=== PATIENT | female | born 1950 | race Two or more races ===

== ENCOUNTER → 2024-03-02 | Outpatient (CLI) | payer MEDICARE, MEDICAID, SELFPAY ==
--- NOTE | 2024-03-02 | XR_ITS ---
Examination: Wrist, right 3 views Technique: Wrist AP, oblique, lateral 3 views Date and time of exam: March 02, 2024 1137 hours INDICATIONS: Right wrist fracture 2 months ago FINDINGS: Significant healing fracture distal radial metaphysis with stable and satisfactory alignment compared with 01/05/2024 IMPRESSION: Significant healing fracture radial metaphysis with satisfactory alignment
[2024-03-02 13:04] LABS: Anion Gap 5 (7-16); BUN/Creatinine Ratio 27 Ratio (12-20); Blood Urea Nitrogen 16 mg/dL (9-23); Calcium 10.3 mg/dL (8.3-10.6); Carbon Dioxide 28.7 mMol/L (20.0-31.0); Chloride 102 mMol/L (98-107); Creatinine (Component) 0.6 mg/dL (0.6-1.3); Glucose 94 mg/dL (74-106); Osmolality,Calculated 273 (275-295); Potassium 4.8 mMol/L (3.4-5.1); Sodium 136 mMol/L (136-145); eGFR > 60 See Note
== END | disposition home or self-care (01) ==
LOC: CDIM 11:10 → COPL 11:47
PROVIDERS: Otolaryngology; PCP Family Medicine; Referring Provider Orthopaedic Surgery; Visit Provider Radiology Diagnostic Radiology
DX: S52.591D Other fractures of lower end of right radius, subsequent encounter for closed fracture with routine healing (principal); X58.XXXD Exposure to other specified factors, subsequent encounter; H91.22 Sudden idiopathic hearing loss, left ear
CPT/HCPCS: 36415; 73110; 80048

== ENCOUNTER → 2024-05-20 | Outpatient (CLI) | payer MEDICARE, MEDICAID, SELFPAY ==
[2024-05-20 10:47] LABS: Anion Gap 9 (7-16); BUN/Creatinine Ratio 28 Ratio (12-20); Blood Urea Nitrogen 17 mg/dL (9-23); Calcium 9.7 mg/dL (8.3-10.6); Carbon Dioxide 30.7 mMol/L (20.0-31.0); Chloride 99 mMol/L (98-107); Creatinine (Component) 0.6 mg/dL (0.6-1.3); Glucose 117 mg/dL (74-106); Osmolality,Calculated 280 (275-295); Sodium 139 mMol/L (136-145); eGFR > 60 See Note
== END | disposition home or self-care (01) ==
LOC: COPL 09:25
PROVIDERS: PCP Physician Assistant; Referring Provider Otolaryngology; Visit Provider Otolaryngology
DX: H91.22 Sudden idiopathic hearing loss, left ear (principal)
CPT/HCPCS: 36415; 80048

== ENCOUNTER → 2024-05-22 | Outpatient (CLI) | payer MEDICARE, MEDICAID, SELFPAY ==
--- NOTE | 2024-05-22 | XR_ITS ---
Examination: MRI of brain without intravenous contrast. MRI brain with intravenous contrast. Date and time of exam:May 22, 2024 1314 hrs. Indications: Sensorineural hearing loss bilateral 6 months Technique: Multiple axial and sagittal images of the brain to been obtained. Siemens high-resolution 1.52 Katie short bore scanner utilized. Sagittal sections, T1 weighted images, TR 500, TE 14, are performed. Axial sections proton-density and T2-weighted images have been obtained. Inversion recovery axial images, TR 9260, TE 111, TR 2500. Diffusion weighted images, axial sections, TR 4800, TE 128, B value 1000. Axial sections, ADC map, TR 4800, TE 128. Axial and coronal images were also obtained post 16 cc gadolinium administered intravenously. Findings:: Enlargement of the sella turcica is not present. The optic chiasm and infundibular stalk are not remarkable. There is no localized enlargement of the medulla or serena. Fourth ventricle and cerebellar tonsils appear normal in position. No subacute area of hemorrhage density is seen. Fourth ventricle is midline. Mass in the cerebellopontine angle region is not evident. 7th and 8th nerve complexes exhibit symmetry Globes are symmetrical Orbital musculature including medial lateral rectus muscles do not exhibit abnormality Increased white matter signal is prominent Mild bilateral mastoiditis Effacement of the cortical sulcal markings is not identified. Mass effect upon the ventricular system is not identified. Diffusion-weighted images demonstrate no focus of restricted diffusion Contrast images demonstrate no abnormal enhancement Impression: Negative for acute hemorrhage mass effect or midline shift No acute infarct Prominent chronic microvascular white matter change Mild bilateral mastoiditis No abnormal enhancing acoustic neurinoma or other enhancing cerebellar or cerebral lesions
== END | disposition home or self-care (01) ==
LOC: SMRI 11:12
PROVIDERS: PCP Physician Assistant; Referring Provider Otolaryngology; Visit Provider Otolaryngology
DX: R90.82 White matter disease, unspecified (principal); H70.93 Unspecified mastoiditis, bilateral
CPT/HCPCS: 70553; A9579

== ENCOUNTER → 2024-09-17 | Outpatient (CLI) | payer MEDICARE, MEDICAID, SELFPAY ==
--- NOTE | 2024-09-17 08:00 | XR_ITS ---
Examination: Screening digital mammography, bilateral Computer aided detection 3-D breast Tomosynthesis, bilateral Date and time of exam: September 17, 2024 0759 hours Compared to mammograms dating to September 22, 2008 Indication: Screening Technique: Nonmagnified MLO, CC views of the breasts to been obtained, reconstructed from 3-D Tomosynthesis images. R2 computer aided detection program utilized for evaluation of suspicious masses and/or abnormal calcifications. 3-D Tomosynthesis images obtained. Findings: Scattered areas of fibroglandular density. Benign calcifications. No interval suspicious masses Impression: BI-RADS category II: Benign Findings. Recommend 1 year follow-up mammogram.
== END | disposition home or self-care (01) ==
LOC: CDIM 07:07
PROVIDERS: PCP Physician Assistant; Referring Provider Physician Assistant; Visit Provider Physician Assistant
DX: Z12.31 Encounter for screening mammogram for malignant neoplasm of breast (principal); R92.323 Mammographic fibroglandular density, bilateral breasts; R92.1 Mammographic calcification found on diagnostic imaging of breast
CPT/HCPCS: 77063; 77067

== ENCOUNTER 2024-09-25 14:22 | Emergency (ER) | payer MEDICARE, MEDICAID, SELFPAY ==
[2024-09-25 15:31] VITALS: BP 126/66; PULSE 77; RESP 18; TEMP 36.8; O2SAT 97; BMI 34.0
--- NOTE | 2024-09-25 15:48 | XR_ITS ---
Examination: Knee bilateral, 6 views Technique: Knee AP, lateral, oblique using a total 6 views Date and time of exam: September 25, 2024 1555 hours INDICATIONS: Bilateral knee pain 6 weeks. FINDINGS: Bilateral moderate to advanced tricompartment osteoarthritis, most severe involving the patellofemoral joints as well as the medial joints right knee and lateral joint space left knee No fractures IMPRESSION: Bilateral moderate to advanced tricompartment osteoarthritis
--- NOTE | 2024-09-25 16:11 | PD.EDLOWEX ---
Lower Extremity Injury RME/HPI General Chief Complaint: Extremity Injury, Lower Stated Complaint: bilateral leg pain Time Seen by Provider: 09/25/24 14:53 Arrival date/time: 09/25/24 14:22 This is a 74-year-old that complains of bilateral leg pain and lower back pain. Patient states is been going on for really long time. Patient states she did not fall she had no trauma. Patient does complain of bilateral knee pain which recently got worse. Patient states she is gone to her primary doctor and they are never able to do anything for her pain. Patient states she takes ibuprofen. Patient denies any urinary symptoms but does have some lower abdominal mild pain. Patient has a history of diabetes and chronic pain. Related Data Previous Rx's ?Medication ?Instructions ?Recorded meclizine 25 mg tablet 25 mg PO QDAY PRN dizziness #30 05/25/19 tabs omeprazole 20 mg tablet,delayed 20 mg PO QDAY #30 tabs 08/19/21 release ibuprofen 600 mg tablet 600 mg PO Q6H #30 tabs 03/06/23 meloxicam 7.5 mg tablet 7.5 mg PO QDAY #10 tabs 01/05/24 ibuprofen 800 mg tablet 800 mg PO Q6H PRN pain #20 tabs 09/25/24 Allergies Allergy/AdvReac Type Severity Reaction Status Date / Time No Known Allergies Allergy Verified 09/25/24 14:27 Course Orders Category Date Time Status XR knee BI 3V Stat Exams 09/25/24 15:48 Completed Urinalysis, C/S if Indicated Stat Lab 09/25/24 16:20 Completed Acetaminophen Tab [Tylenol ES Tab] Med 09/25/24 15:48 Discontinued 1,000 mg PO X1 ONE CYCLObenzaPRINE [Flexeril] Med 09/25/24 15:48 Discontinued 5 mg PO X1 ONE Furosemide [Lasix] Med 09/25/24 18:16 Once 20 mg PO X1 ONE Ibuprofen Tab [Motrin Tab] Med 09/25/24 15:48 Discontinued 800 mg PO X1 ONE Ondansetron Odt [Zofran Odt] Med 09/25/24 18:16 Once 4 mg PO X1 ONE traMADol HCL [Ultram] Med 09/25/24 18:16 Once 50 mg PO X1 ONE Vital Signs Vital signs: Vital Signs Temperature 98.3 F 09/25/24 15:31 Pulse Rate 77 05/31/25 15:31 Respiratory Rate 18 09/25/24 15:31 Blood Pressure 126/66 09/25/24 15:31 Pulse Oximetry (%) 97 09/25/24 15:31 Extremity Injury, Lower Medications / Prescriptions Medication administrations:: Medication Administration History Furosemide (Furosemide 20 Mg Tablet) 20 mg PO X1 ONE Stop: 09/25/24 18:17 Tramadol HCl (Tramadol Hcl 50 Mg Tablet) 50 mg PO X1 ONE Stop: 09/25/24 18:17 Discontinued Medications Acetaminophen (Acetaminophen 500 Mg Tablet) 1,000 mg PO X1 ONE Stop: 09/25/24 15:49 Last Admin: 09/25/24 16:36 Dose: 1,000 mg Documented By: Cyclobenzaprine HCl (Cyclobenzaprine 5 Mg Tablet) 5 mg PO X1 ONE Stop: 09/25/24 15:49 Last Admin: 09/25/24 16:36 Dose: 5 mg Documented By: Ibuprofen (Ibuprofen Tab 400 Mg Tablet) 800 mg PO X1 ONE Stop: 09/25/24 15:49 Last Admin: 09/25/24 16:37 Dose: 800 mg Documented By: Discharge Plan Plan Patient Disposition: HOME (Self Care) Patient condition on transfer: Stable Prescriptions/Referrals Prescriptions/Med Rec: New ibuprofen 800 mg tablet 800 mg PO Q6H PRN (Reason: pain) Qty: 20 0RF No Action meclizine 25 mg tablet 25 mg PO QDAY PRN (Reason: dizziness) Qty: 30 0RF omeprazole 20 mg tablet,delayed release (DR/EC) 20 mg PO QDAY Qty: 30 0RF ibuprofen 600 mg tablet 600 mg PO Q6H Qty: 30 0RF meloxicam 7.5 mg tablet 7.5 mg PO QDAY Qty: 10 0RF Problem List Clinical Impression: Osteoarthritis of both knees, Chronic leg pain Patient/Caregiver Discharge Instructions Discharge Activity: activity as tolerated Education Materials: KAM THOMPSON Osteoarthritis Additional Instructions: bilateral knee x ray: FINDINGS: Bilateral moderate to advanced tricompartment osteoarthritis, most severe involving the patellofemoral joints as well as the medial joints right knee and lateral joint space left knee No fractures IMPRESSION: Bilateral moderate to advanced tricompartment osteoarthritis Oleg un dustin con iraheta medico de cabecera en las proximas 24-48 horas. Regrese a la omid de emergencias si hay evidencia de que los signos o sintomas empeoran. Print Language: Bengali Stand Alone Forms: Laura Award Info., Patient Portal Info Letter PA/WARP STARTER Supervising Physician PA/WARP STARTER Supervising Physician: ward
[2024-09-25 16:28] LABS: Collection Type, Urine Voided
[2024-09-25] MEDS: ACETAMINOPHEN 500 MG TABLET 1000 MG PO (16:36)
[2024-09-25] MEDS: CYCLObenzaPRINE 5 MG TABLET PO (16:36)
[2024-09-25] MEDS: IBUPROFEN TAB 400 MG TABLET 800 MG PO (16:37)
[2024-09-25 16:41] LABS: Bilirubin,Urine 1+ (Negative); Blood,Urine Negative (Negative); Clarity,Urine Clear (Clear/Hazy); Color,Urine Yellow (Lt Yel-Yel); Culture Indicated,Urine Not Indicated; Glucose, Urine Negative (Negative); Hyaline Casts,Urine < 1 /hpf (0-1); Ketones,Urine Trace (Negative); Leukocyte Esterase,Urine Negative (Negative); Nitrite,Urine Negative (Negative); PH,Urine 5.5 (5.0-7.0); Protein,Urine Trace (Neg - Trace); RBC,Urine 3 /hpf (0-3); Squamous Epithelial Cell,Urine 6 /hpf (0-5); WBC,Urine 1 /hpf (0-5)
[2024-09-25] MEDS: ONDANSETRON ODT 4 MG TABRAP PO (18:29)
[2024-09-25] MEDS: traMADol HCL 50 MG TABLET PO (18:29)
[2024-09-25 19:34] VITALS: BP 126/66; PULSE 77
[2024-09-25] MEDS: Furosemide 20 MG TABLET PO (19:34)
== END 2024-09-25 17:44 | disposition home or self-care (01) ==
LOC: SERX 18:13
PROVIDERS: Nurse Practitioner Family; Emergency Provider Emergency Medicine; PCP Physician Assistant
DX: M17.0 Bilateral primary osteoarthritis of knee (principal); E11.9 Type 2 diabetes mellitus without complications
CPT/HCPCS: 73562; 81001; 99283; Q0162; A9270

== ENCOUNTER → 2024-11-27 | Outpatient (CLI) | payer MEDICARE, MEDICAID, SELFPAY ==
--- NOTE | 2024-11-27 | XR_ITS ---
Exam: MRI knee without contrast, right Date and time of exam: November 27, 2024, 1043 hours Technique: Multiple axial, coronal, and sagittal sections on the knee have been obtained. T2-Weighted sagittal, fat-suppressed images, TR 3,500, TE 62, T2 weighted coronal fat-saturated images, TR 3,500, TE 62 Proton density sagittal sections, TR 1800, TE 31. T-1 weighted coronal images, TR 524, TE 13.0 Findings: Medial meniscus anterior horn truncation inner margin. Medial meniscus, body extruded from the joint space and replaced by isointense signal. Posterior horn medial meniscus truncation inner margin, horizontal linear tears. Lateral meniscus anterior horn truncation inner margin Lateral meniscus, body is intact Posterior horn lateral meniscus is intact Anterior cruciate ligament high-grade sprain Posterior cruciate ligament appears intact. Knee effusion is small. Quadriceps and patellar tendons appear intact. There is no evidence of tendinosis. Inflammatory change or fracture of Hoffa's fat pad is not seen. Medial patellar facet demonstrates severe thinning. Lateral patellar facet cartilage demonstrates severe thinning. Trochlear cartilage demonstrates severe thinning. Marrow signal adequate. Medial collateral ligament appears intact. No meniscocapsular separation is seen. Illiotibial band and fibular collateral ligament are intact. Biceps femoris tendons appear intact. Medial femoral condylar articular cartilage demonstrates severe thinning. Lateral femoral condylar articular cartilage demonstratesmoderate thinning. Tibial plateau cartilage demonstrates severe medial thinning. Impression: Extensive medial and lateral meniscus tears High-grade sprain anterior cruciate ligament
--- NOTE | 2024-11-27 10:30 | XR_ITS ---
Exam: MRI knee without contrast, right Date and time of exam: November 27, 2024 1016 hours INDICATIONS: Knee pain joint grinding stiffness swelling instability months Technique: Multiple axial, coronal, and sagittal sections on the knee have been obtained. T2-Weighted sagittal, fat-suppressed images, TR 3,500, TE 62, T2 weighted coronal fat-saturated images, TR 3,500, TE 62 Proton density sagittal sections, TR 1800, TE 31. T-1 weighted coronal images, TR 524, TE 13.0 Findings: Medial meniscus anterior horn intact. Medial meniscus, body horizontal linear tear communicating inner margin. Posterior horn medial meniscus truncation inner margin, horizontal linear tear. Lateral meniscus anterior horn truncation inner margin Lateral meniscus, body is partially replaced by isointense signal Posterior horn lateral meniscus large horizontal linear tear Anterior cruciate ligament high-grade sprain Posterior cruciate ligament appears intact. Knee effusion is moderate. Quadriceps and patellar tendons appear intact. There is no evidence of tendinosis. Inflammatory change or fracture of Hoffa's fat pad is not seen. Medial patellar facet demonstrates severe thinning. Lateral patellar facet cartilage demonstrates severe thinning. Trochlear cartilage demonstrates severe thinning. Marrow signal increased about the lateral joint space. Medial collateral ligament appears intact. No meniscocapsular separation is seen. Illiotibial band and fibular collateral ligament are intact. Biceps femoris tendons appear intact. Medial femoral condylar articular cartilage demonstrates moderate thinning. Lateral femoral condylar articular cartilage demonstratessevere thinning. Tibial plateau cartilage demonstrates severe lateral thinning. Impression: Extensive medial and lateral meniscus tears High-grade sprain anterior cruciate ligament Severe narrowing patellofemoral and lateral joint spaces
== END | disposition home or self-care (01) ==
LOC: SMRI 08:44
PROVIDERS: PCP Physician Assistant; Referring Provider Physician Assistant; Visit Provider Physician Assistant
DX: S83.282A Other tear of lateral meniscus, current injury, left knee, initial encounter (principal); S83.212A Bucket-handle tear of medial meniscus, current injury, left knee, initial encounter; S83.211A Bucket-handle tear of medial meniscus, current injury, right knee, initial encounter; S83.281A Other tear of lateral meniscus, current injury, right knee, initial encounter; S83.512A Sprain of anterior cruciate ligament of left knee, initial encounter; S83.511A Sprain of anterior cruciate ligament of right knee, initial encounter; X58.XXXA Exposure to other specified factors, initial encounter; Y93.9 Activity, unspecified; M25.862 Other specified joint disorders, left knee
CPT/HCPCS: 73718

== ENCOUNTER 2025-03-15 08:57 | Outpatient (AMB) | payer MEDICARE, MEDICAID, SELFPAY ==
[2025-03-15 09:25] VITALS: BP 129/80; PULSE 77; RESP 18; TEMP 36.7; O2SAT 97; BMI 31.6
--- NOTE | 2025-03-15 09:25 | PD.ORTHCLVIS ---
Vital signs 03/15/25 09:25 Height 1.55 m Height Method Measured Weight 75.835 kg Weight Measurement Method Standing Scale BMI 31.6 BP 129/80 Blood Pressure Source Automatic Cuff Blood Pressure Location Left Upper Arm Position Sitting Respiration 18 Pulse 77 Pulse Source Monitor Temp 98.1 F Temp Source Temporal Artery Scan Pulse Oximetry (%) 97 Oxygen Delivery Method Room Air Med/Allergies Allergies & Medications Allergies No Known Allergies Allergy (Verified 03/15/25 09:26) Medication Reconciliation ibuprofen 800 mg tablet 800 mg PO Q6H PRN pain #20 tabs 09/25/24 [Rx] calcium carbonate (Oyster Shell Calcium) 500 mg PO BID 03/15/25 [History Confirmed 03/15/25] ergocalciferol (vitamin D2) 50 mcg (2,000 unit) capsule 50 mcg PO QDAY 03/15/25 [History Confirmed 03/15/25] furosemide 20 mg tablet (Lasix) 20 mg PO QAM 03/15/25 [History Confirmed 03/15/25] oxybutynin chloride 5 mg/5 mL oral syrup 5 mg PO QDAY 03/15/25 [History Confirmed 03/15/25] zinc acetate 50 mg (zinc) capsule 50 mg PO QDAY 03/15/25 [History Confirmed 03/15/25] Exam Exam Patient is in no acute distress and is cooperative with the examination today. Breathing is nonlabored. In no respiratory distress. Bilateral extremities were evaluated and demonstrates sensation intact to light touch. Palpable pedal pulses are present. No significant edema is present. Bilateral hips were examined. The patient has no pain with log roll of the hips. Internal rotation to 30 degrees and external rotation to 30 degrees is painless. Negative FADIR. The left knee was examined. The left knee is in valgus alignment. Range of motion from 0-115 degrees. Knee is stable to varus and valgus as well as AP translation with <5mm. Patient has a negative McMurrays. There is no pain with patellofemoral compression and no crepitus noted. The knee is tender to palpation laterally. The right knee was also examined. The right knee is in valgus alignment. Range of motion from 0-120 degrees. Knee is stable to varus and valgus as well as AP translation with <5mm. Patient has a negative McMurrays. There is no pain with patellofemoral compression and no crepitus noted. The knee is tender to palpation laterally. Nonweightbearing x-rays demonstrate complete joint space narrowing and [id number] arthritis Assessment and Plan Problem List (1) Osteoarthritis of both knees: Status: Chronic Plan: ASSESSMENT AND PLAN 1. Bilateral knee pain: Significant arthritis is present in both knees, with the left knee being worse than the right. Conservative treatments, including plasma injections and ibuprofen, have provided limited relief. Pain is exacerbated by walking and relieved by sitting. Numbness and tingling are noted on the right side, while burning, aching, and popping are present on the left. Stiffness and night pain are also reported. A weightbearing x-ray will be conducted today to better assess the extent of the arthritis. Medical clearance will be obtained in preparation for potential surgical intervention. Depending on the x-ray results, further discussion regarding surgery will be held at the next visit. Risks and benefits of surgery, including potential improvement in pain and quality of life, will be thoroughly discussed. Lifestyle modifications, such as weight management and physical therapy, will be recommended to support joint health. Referral to an orthopedic surgeon will be made if surgery is deemed necessary. Ibuprofen will continue to be used for pain management as needed. Follow-up: Next visit after x-ray results. 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 ([id number]) MA Intake Visit Data Collection New Patient or Established: Established Patient (seen at [facility] within 3 years) Reason for Visit:: BILATERAL KNEE PAIN Seen by Clinical Staff ONLY (RN/MA): No Dry Kiln Loader Required: Yes PCP or OBGYN visit in last 3 months: Yes Hx Now: No Do You Feel Safe at Home: Yes Authorities Contacted: N/A Questionairres Past Medical History Past Medical History Have you ever been diagnosed with any of the following: Neurological Problems Cerebrovascular Accident (CVA): No Transient Ischemic Attacks (TIA): No Dementia: No Alzheimer's Disease: No Parkinson's Disease: No Brain Tumor: No Meningitis: No Seizures: No Epilepsy: No Multiple Sclerosis: No Cerebral Palsy: No Amyotrophic Lateral Sclerosis (ALS/Amy Gehrig's): No Guillain-[place] Syndrome: No Spina Bifida: No Paralysis: No Peripheral Neuropathy: No Riddle's Palsy: No Subdural Hematoma: No Migraine: No Head Trauma: No Spinal Cord Injury: No Cardiology Problems Myocardial Infarction: No Cardiac Arrhythmia: No Atrial Fibrillation: No Angina: No Heart Murmur: No Coronary Artery Disease: No Atherosclerotic Heart Disease: No Peripheral Vascular Disease: No Hypercholesterolemia: No Aneurysm: No Congestive Heart Failure: No Congenital Heart Disease: No Valvular Heart Disease: No Rheumatic Fever: No Edema: No Pericarditis: No Cellulitis: No Deep Vein Thrombosis: No Respiratory Problems Chronic Obstructive Pulmonary Disease (COPD): No Asthma: No Bronchitis: No Emphysema: No Pneumonia: No Pulmonary Fibrosis: No Tuberculosis: No Pulmonary Embolism: No Pulmonary Edema: No Sleep Apnea: No CPAP Dependent: No Respiratory Aspiration: No Dyspnea: No Orthopnea: No Hx Cough: No Cough: No Wheezing: No Chest Deformities: No Smoking: No Smoking Cessation Counseling: No Smoking Exposure: No Tobacco Use: No Clubbing: No Exposure to Respiratory Irritants: No Intubation: No Genital/Urinary Problems Chronic Kidney Disease: No Renal Disease: No Kidney Stones: No Polycystic Kidney Disease: No Neurogenic Bladder: No Inguinal Hernia: No Dialysis: No Reproductive Problems Breast Cancer: No Endometriosis: No Fibroids: No Genital Herpes: No Gonorrhea: No Pelvic Inflammatory Disease: No Polycystic Ovarian Syndrome: No Previous Pregnancies: No Syphilis: No Uterine Prolapse: No Head,Eye,Nose,Throat Problems Cataracts: No Glaucoma: No Blind: No Retinal Detachment: No Macular Degeneration: No Chronic Ear Infections: No Deafness: No Eye Prosthesis: No Blood Problems Anemia: No Leukemia: No Hemophilia: No Thalassemia: No Sickle Cell Disease: No Clotting Problems: No Subjective Visit Visit for: new patient and knee (BILATERAL) Immunization / Flu Flu Vaccine in the Last 12 Months: No Flu Vaccine Exclusion Criteria: Refused by Patient History of Present Illness Chief complaint: BILATERAL KNEE PAIN Date of injury / onset of symptoms: 10 YEARS Personal History Occupation: RETIRED Additional comments: HISTORY OF PRESENT ILLNESS IYogi, have obtained verbal consent from the patient, to be recorded during this encounter which may include, but not limited to, medical history, examination, treatment plans, and relevant health information.? Patient was informed that recording will be read and reviewed by myself before inclusion in the medical chart. The patient is a 75-year-old female presenting with bilateral knee pain, left worse than right, persisting for the past 10 years. She reports that her left knee is more problematic than the right. The pain intensifies during ambulation but subsides when seated. She experiences tingling predominantly on the right side, while the left knee is characterized by burning, aching, and popping sensations. Stiffness and nocturnal pain are also present. She has not undergone any weightbearing x-rays. She has no history of hypertension, diabetes, or hypercholesterolemia. An MRI was conducted on 11/27/2024. She has received a total of 6 plasma injections in each knee and a single steroid injection, which provided temporary relief. However, the steroid injections were discontinued due to the recommendation for knee replacement surgery. She manages her pain with ibuprofen, which offers occasional relief. Pain Pain level (0-10): 7 Pain duration: WITH MOVEMENT Pain location: inside (medial) (RIGHT) and outside (lateral) (LEFT) Pain quality: dull (LEFT), burning (LEFT) and tingling (RIGHT) Pain timing: night, increases with activity and stairs Associated signs & symptoms: stiffness Ambulatory data Ambulatory device: none Treatments Number of previous injections: 6 (PLASMA/1 STEROID INJECTION) Improvement with previous injections: Yes Improvement with PT: No Improvement with NSAIDS: yes (IBUPROFEN) Review of Systems Review of Systems: All systems negative unless otherwise noted in HPI.
--- NOTE | 2025-03-15 09:34 | XR_ITS ---
EXAMINATION: Bilateral knees 2 views Right lateral knee left lateral knee 2 views Bilateral Axuni single view TECHNIQUE: Bilateral AP knees standing single view, bilateral PA and a standing single view flexion Standing right lateral knee left lateral knee 2 views Bilateral Axuni single view total 5 views Date and time: March 15, 2025, 1004 hours INDICATIONS: Bilateral knee pain 5 years. FINDINGS: Advanced narrowing medial joint space right knee, [id number] Advanced right knee tricompartment osteoarthritis Advanced narrowing lateral joint space left knee, [id number] Significant osteoarthritis left patellofemoral joint No fractures IMPRESSION: Severe narrowing [id number] medial joint space right knee Advanced right knee tricompartment osteoarthritis Severe narrowing [id number] lateral joint space left knee Significant osteoarthritis left patellofemoral joint
== END 2025-03-15 09:44 | disposition home or self-care (01) ==
LOC: HODSRG 08:57
PROVIDERS: PCP Physician Assistant; Referring Provider Physician Assistant; Supervising Provider Orthopaedic Surgery Adult Reconstructive Orthopaedic Surgery; Visit Provider Orthopaedic Surgery Adult Reconstructive Orthopaedic Surgery
DX: M25.562 Pain in left knee (principal); M25.561 Pain in right knee; M17.0 Bilateral primary osteoarthritis of knee
CPT/HCPCS: 73564; 99204; G0463

== ENCOUNTER 2025-03-22 07:59 | Outpatient (AMB) | payer MEDICARE, MEDICAID, SELFPAY ==
--- NOTE | 2025-03-22 08:32 | PD.ORTHCLVIS ---
Vital signs 03/22/25 08:35 Height 1.55 m Height Method Stated Weight 75.523 kg Weight Measurement Method Standing Scale BMI 31.4 BP 133/75 H Blood Pressure Source Automatic Cuff Blood Pressure Location Left Upper Arm Position Sitting Respiration 18 Pulse 78 Pulse Source Monitor Temp 97.2 F Temp Source Temporal Artery Scan Pulse Oximetry (%) 98 Oxygen Delivery Method Room Air Med/Allergies Allergies & Medications Allergies No Known Allergies Allergy (Verified 03/22/25 08:36) Medication Reconciliation ibuprofen 800 mg tablet 800 mg PO Q6H PRN pain #20 tabs 09/25/24 [Rx Confirmed 03/22/25] calcium carbonate (Oyster Shell Calcium) 500 mg PO BID 03/15/25 [History Confirmed 03/22/25] ergocalciferol (vitamin D2) 50 mcg (2,000 unit) capsule 50 mcg PO QDAY 03/15/25 [History Confirmed 03/22/25] furosemide 20 mg tablet (Lasix) 20 mg PO QAM 03/15/25 [History Confirmed 03/22/25] oxybutynin chloride 5 mg/5 mL oral syrup 5 mg PO QDAY 03/15/25 [History Confirmed 03/22/25] zinc acetate 50 mg (zinc) capsule 50 mg PO QDAY 03/15/25 [History Confirmed 03/22/25] Exam Exam Patient is in no acute distress and is cooperative with the examination today. Breathing is nonlabored. In no respiratory distress. Bilateral extremities were evaluated and demonstrates sensation intact to light touch. Palpable pedal pulses are present. No significant edema is present. Bilateral hips were examined. The patient has no pain with log roll of the hips. Internal rotation to 30 degrees and external rotation to 30 degrees is painless. Negative FADIR. The left knee was examined. The left knee is in valgus alignment. Range of motion from 0-115 degrees. Knee is stable to varus and valgus as well as AP translation with <5mm. Patient has a negative McMurrays. There is no pain with patellofemoral compression and no crepitus noted. The knee is tender to palpation laterally. The right knee was also examined. The right knee is in valgus alignment. Range of motion from 0-120 degrees. Knee is stable to varus and valgus as well as AP translation with <5mm. Patient has a negative McMurrays. There is no pain with patellofemoral compression and no crepitus noted. The knee is tender to palpation laterally. Bilateral knee weightbearing x-rays demonstrate complete joint space narrowing and ejti-[id number] arthritis. She has valgus deformity Assessment and Plan Problem List (1) Osteoarthritis of both knees: Status: Chronic Plan: ASSESSMENT AND PLAN 1. Bilateral knee pain: Significant arthritis is present in both knees, with the left knee being worse than the right. Conservative treatments, including plasma injections and ibuprofen, have provided limited relief. Pain is exacerbated by walking and relieved by sitting. Numbness and tingling are noted on the right side, while burning, aching, and popping are present on the left. Stiffness and night pain are also reported. She has also tried home exercises and cortisone injections. Given her failure of conservative treatment, we discussed total knee replacement as a reasonable option for the left The nature and purpose of the total knee replacement, alternative method(s) of treatment, the material risks involved, and the possibility of complications were fully explained to the patient. The patient does NOT have any of the following contraindications to TKA: - Active infection of the knee joint, OR - Active systemic bacteremia, OR - Active skin infection or open wound at surgical site, OR - Neuropathic arthritis, OR - Severe, rapidly progressive neurological disease, OR - Severe medical condition that makes risks of surgery outweigh the potential benefit The patient was told the most common risks and complications associated with a total knee replacement include, but are not limited to: blood clots in the leg, fatal pulmonary embolism, dislocation of the prosthesis, intraoperative and postoperative fractures of the femur or tibia, infection, failure of the prosthesis or grafting materials, complications from anesthesia, reactions to blood transfusions, postoperative leg length inequality, instability of the knee replacement, nerve damage or injury, vascular injury, delayed wound healing, infection, other injury or even . In addition, there are risks associated with anesthesia given during this operation. Also, the patient was told that after undergoing a total knee replacement there may still be persistent pain or disability. The patient was informed that the success of this operation in part depends upon the mechanical devices which are going to be implanted and that these devices can fail or malfunction, and may need to be repaired or replaced and there are no guarantees as to the longevity of this device or its parts and that it or its parts could fail prematurely. The patient was also notified that during the course of surgery, there may be a need to use bone graft from donors, and that any bone graft used will be carefully screened for communicable diseases, including AIDS, hepatitis, Young-Creutzfeldt, or other diseases, but despite the screening procedures, there is a small chance that they could contract one of these diseases. Finally, the patient was asked to follow completely and fully with all advice and recommended treatments, and that recovery and ultimate outcome are affected by their compliance with recommended treatment. We discussed the risks, benefits and treatment alternatives, and the patient is interested in proceeding with surgery. We will try to set this up as expeditiously as possible. Advanced Care Planning Discussion Advance care planning discussed with:: patient Office Procedures GNS Level of Care Nursing/Assessment Patient Status: Established Patient Nursing Assessment/Reassesment: Medication Reconciliation, Update PMH in EMR and Vital Signs Coordination of Care: Complex Care and Chronic Disease 1-5, Education Complex Pt/Fam, Consent,records obtained, informed consent, Results/Orders obtained and Staff clarify orders Special Needs: Language special needs Established Patient Charge Established Patient Point Assignment: 95 Established Patient Point Charge: EP Level 3 (80-115) MA Intake Visit Data Collection New Patient or Established: Established Patient (seen at [facility] within 3 years) Reason for Visit:: BILATERAL KNEE XRAY RESULTS Seen by Clinical Staff ONLY (RN/MA): No Tooth Cutter Pinion Required: Yes PCP or OBGYN visit in last 3 months: Yes Hx Now: No Do You Feel Safe at Home: Yes Authorities Contacted: N/A Questionairres Past Medical History Past Medical History Have you ever been diagnosed with any of the following: Neurological Problems Cerebrovascular Accident (CVA): No Transient Ischemic Attacks (TIA): No Dementia: No Alzheimer's Disease: No Parkinson's Disease: No Brain Tumor: No Meningitis: No Seizures: No Epilepsy: No Multiple Sclerosis: No Cerebral Palsy: No Amyotrophic Lateral Sclerosis (ALS/Amy Gehrig's): No Guillain-[place] Syndrome: No Spina Bifida: No Paralysis: No Peripheral Neuropathy: No Riddle's Palsy: No Subdural Hematoma: No Migraine: No Head Trauma: No Spinal Cord Injury: No Cardiology Problems Myocardial Infarction: No Cardiac Arrhythmia: No Atrial Fibrillation: No Angina: No Heart Murmur: No Coronary Artery Disease: No Atherosclerotic Heart Disease: No Peripheral Vascular Disease: No Hypercholesterolemia: No Aneurysm: No Congestive Heart Failure: No Congenital Heart Disease: No Valvular Heart Disease: No Rheumatic Fever: No Edema: No Pericarditis: No Cellulitis: No Deep Vein Thrombosis: No Respiratory Problems Chronic Obstructive Pulmonary Disease (COPD): No Asthma: No Bronchitis: No Emphysema: No Pneumonia: No Pulmonary Fibrosis: No Tuberculosis: No Pulmonary Embolism: No Pulmonary Edema: No Sleep Apnea: No CPAP Dependent: No Respiratory Aspiration: No Dyspnea: No Orthopnea: No Hx Cough: No Cough: No Wheezing: No Chest Deformities: No Smoking: No Smoking Cessation Counseling: No Smoking Exposure: No Tobacco Use: No Clubbing: No Exposure to Respiratory Irritants: No Intubation: No Genital/Urinary Problems Chronic Kidney Disease: No Renal Disease: No Kidney Stones: No Polycystic Kidney Disease: No Neurogenic Bladder: No Inguinal Hernia: No Dialysis: No Reproductive Problems Breast Cancer: No Endometriosis: No Fibroids: No Genital Herpes: No Gonorrhea: No Pelvic Inflammatory Disease: No Polycystic Ovarian Syndrome: No Previous Pregnancies: No Syphilis: No Uterine Prolapse: No Head,Eye,Nose,Throat Problems Cataracts: No Glaucoma: No Blind: No Retinal Detachment: No Macular Degeneration: No Chronic Ear Infections: No Deafness: No Eye Prosthesis: No Blood Problems Anemia: No Leukemia: No Hemophilia: No Thalassemia: No Sickle Cell Disease: No Clotting Problems: No Subjective Visit Visit for: new patient and knee (BILATERAL) Immunization / Flu Flu Vaccine in the Last 12 Months: No Flu Vaccine Exclusion Criteria: Refused by Patient History of Present Illness Chief complaint: BILATERAL KNEE PAIN Date of injury / onset of symptoms: 10 YEARS Personal History Occupation: RETIRED Additional comments: HISTORY OF PRESENT ILLNESS IYogi, have obtained verbal consent from the patient, to be recorded during this encounter which may include, but not limited to, medical history, examination, treatment plans, and relevant health information.? Patient was informed that recording will be read and reviewed by myself before inclusion in the medical chart. The patient is a 75-year-old female presenting with bilateral knee pain, left worse than right, persisting for the past 10 years. She reports that her left knee is more problematic than the right. The pain intensifies during ambulation but subsides when seated. She experiences tingling predominantly on the right side, while the left knee is characterized by burning, aching, and popping sensations. Stiffness and nocturnal pain are also present. She has not undergone any weightbearing x-rays. She has no history of hypertension, diabetes, or hypercholesterolemia. An MRI was conducted on 11/27/2024. She has received a total of 6 plasma injections in each knee and a single steroid injection, which provided temporary relief. However, the steroid injections were discontinued due to the recommendation for knee replacement surgery. She manages her pain with ibuprofen, which offers occasional relief. Her hgb a1c is Pain Pain level (0-10): 7 Pain duration: WITH MOVEMENT Pain location: inside (medial) (RIGHT) and outside (lateral) (LEFT) Pain quality: dull (LEFT), burning (LEFT) and tingling (RIGHT) Pain timing: night, increases with activity and stairs Associated signs & symptoms: stiffness Ambulatory data Ambulatory device: none Treatments Number of previous injections: 6 (PLASMA/1 STEROID INJECTION) Improvement with previous injections: Yes Improvement with PT: No Improvement with NSAIDS: yes (IBUPROFEN) Review of Systems Review of Systems: All systems negative unless otherwise noted in HPI.
[2025-03-22 08:35] VITALS: BP 133/75; PULSE 78; RESP 18; TEMP 36.2; O2SAT 98; BMI 31.4
== END 2025-03-22 09:14 | disposition home or self-care (01) ==
LOC: HODSRG 07:59
PROVIDERS: PCP Physician Assistant; Referring Provider Physician Assistant; Supervising Provider Orthopaedic Surgery Adult Reconstructive Orthopaedic Surgery; Visit Provider Orthopaedic Surgery Adult Reconstructive Orthopaedic Surgery
DX: M25.562 Pain in left knee (principal); M25.561 Pain in right knee; M17.0 Bilateral primary osteoarthritis of knee
CPT/HCPCS: 99213; G0463

== ENCOUNTER 2025-04-15 08:33 | Outpatient (AMB) | payer MEDICARE, MEDICAID, SELFPAY ==
--- NOTE | 2025-04-15 08:52 | ORTHONT_ITS ---
Vital signs 04/15/25 09:03 Height 1.55 m Height Method Measured Weight 74.077 kg Weight Measurement Method Standing Scale BMI 30.8 BP 153/76 H Blood Pressure Source Automatic Cuff Blood Pressure Location Left Upper Arm Position Sitting Respiration 18 Pulse 91 Pulse Source Monitor Temp 97.6 F Temp Source Temporal Artery Scan Pulse Oximetry (%) 95 Oxygen Delivery Method Room Air Med/Allergies Allergies & Medications Allergies No Known Allergies Allergy (Verified 04/15/25 09:04) Medication Reconciliation ibuprofen 800 mg tablet 800 mg PO Q6H PRN pain #20 tabs 09/25/24 [Rx Confirmed 1 06/16/24] calcium carbonate (Oyster Shell Calcium) 500 mg PO BID 03/15/25 [History Confirmed 04/15/25] ergocalciferol (vitamin D2) 50 mcg (2,000 unit) capsule 50 mcg PO QDAY 03/15/25 [History Confirmed 04/15/25] furosemide 20 mg tablet (Lasix) 20 mg PO QAM 03/15/25 [History Confirmed 04/15/25] oxybutynin chloride 5 mg/5 mL oral syrup 5 mg PO QDAY 03/15/25 [History Confirmed 04/15/25] zinc acetate 50 mg (zinc) capsule 50 mg PO QDAY 03/15/25 [History Confirmed 04/15/25] Exam Exam Patient is in no acute distress and is cooperative with the examination today. Breathing is nonlabored. In no respiratory distress. Bilateral extremities were evaluated and demonstrates sensation intact to light touch. Palpable pedal pulses are present. No significant edema is present. Bilateral hips were examined. The patient has no pain with log roll of the hips. Internal rotation to 30 degrees and external rotation to 30 degrees is painless. Negative FADIR. The left knee was examined. The left knee is in valgus alignment. Range of motion from 0-115 degrees. Knee is stable to varus and valgus as well as AP translation with <5mm. Patient has a negative McMurrays. There is no pain with patellofemoral compression and no crepitus noted. The knee is tender to palpation laterally. The right knee was also examined. The right knee is in valgus alignment. Range of motion from 0-120 degrees. Knee is stable to varus and valgus as well as AP translation with <5mm. Patient has a negative McMurrays. There is no pain with patellofemoral compression and no crepitus noted. The knee is tender to palpation laterally. Bilateral knee weightbearing x-rays demonstrate complete joint space narrowing and ejak-yk-[id number] arthritis. She has valgus deformity Assessment and Plan Problem List (1) Osteoarthritis of both knees: Status: Chronic Plan: ASSESSMENT AND PLAN 1. Bilateral knee pain: Significant arthritis is present in both knees, with the left knee being worse than the right. Conservative treatments, including plasma injections and ibuprofen, have provided limited relief. Pain is exacerbated by walking and relieved by sitting. Numbness and tingling are noted on the right side, while burning, aching, and popping are present on the left. Stiffness and night pain are also reported. She has also tried home exercises and cortisone injections. She will now need cardiac clearance as she has been having palpitations. Given her failure of conservative treatment, we discussed total knee replacement as a reasonable option for the left The nature and purpose of the total knee replacement, alternative method(s) of treatment, the material risks involved, and the possibility of complications were fully explained to the patient. The patient does NOT have any of the following contraindications to TKA: - Active infection of the knee joint, OR - Active systemic bacteremia, OR - Active skin infection or open wound at surgical site, OR - Neuropathic arthritis, OR - Severe, rapidly progressive neurological disease, OR - Severe medical condition that makes risks of surgery outweigh the potential benefit The patient was told the most common risks and complications associated with a t otal knee replacement include, but are not limited to: blood clots in the leg, fatal pulmonary embolism, dislocation of the prosthesis, intraoperative and postoperative fractures of the femur or tibia, infection, failure of the prosthesis or grafting materials, complications from anesthesia, reactions to blood transfusions, postoperative leg length inequality, instability of the knee replacement, nerve damage or injury, vascular injury, delayed wound healing, infection, other injury or even . In addition, there are risks associated with anesthesia given during this operation. Also, the patient was told that after undergoing a total knee replacement there may still be persistent pain or disability. The patient was informed that the success of this operation in part depends upon the mechanical devices which are going to be implanted and that these devices can fail or malfunction, and may need to be repaired or replaced and there are no guarantees as to the longevity of this device or its parts and that it or its parts could fail prematurely. The patient was also notified that during the course of surgery, there may be a need to use bone graft from donors, and that any bone graft used will be carefully screened for communicable diseases, including AIDS, hepatitis, Young-Creutzfeldt, or other diseases, but despite the screening procedures, there is a small chance that they could contract one of these diseases. Finally, the patient was asked to follow completely and fully with all advice and recommended treatments, and that recovery and ultimate outcome are affected by their compliance with recommended treatment. We discussed the risks, benefits and treatment alternatives, and the patient is interested in proceeding with surgery. We will try to set this up as expeditiously as possible. Advanced Care Planning Discussion Advance care planning discussed with:: patient Office Procedures GNS Level of Care Nursing/Assessment Patient Status: Established Patient Nursing Assessment/Reassesment: Medication Reconciliation, Update PMH in EMR and Vital Signs Coordination of Care: Complex Care and Chronic Disease 1-5, Education Complex Pt/Fam, Consent,records obtained, informed consent, Results/Orders obtained and Staff clarify orders Special Needs: Language special needs Established Patient Charge Established Patient Point Assignment: 95 Established Patient Point Charge: EP Level 3 (80-115) MA Intake Visit Data Collection New Patient or Established: Established Patient (seen at [facility] within 3 years) Reason for Visit:: PRE OP LT TKA Seen by Clinical Staff ONLY (RN/MA): No Verbal consent obtained for Telemed visit?: No Ship Engineer Required: Yes PCP or OBGYN visit in last 3 months: Yes Hx Now: No Do You Feel Safe at Home: Yes Authorities Contacted: N/A Questionairres Past Medical History Past Medical History Have you ever been diagnosed with any of the following: Neurological Problems Cerebrovascular Accident (CVA): No Transient Ischemic Attacks (TIA): No Dementia: No Alzheimer's Disease: No Parkinson's Disease: No Brain Tumor: No Meningitis: No Seizures: No Epilepsy: No Multiple Sclerosis: No Cerebral Palsy: No Amyotrophic Lateral Sclerosis (ALS/Amy Gehrig's): No Guillain-[place] Syndrome: No Spina Bifida: No Paralysis: No Peripheral Neuropathy: No Riddle's Palsy: No Subdural Hematoma: No Migraine: No Head Trauma: No Spinal Cord Injury: No Cardiology Problems Myocardial Infarction: No Cardiac Arrhythmia: No Atrial Fibrillation: No Angina: No Heart Murmur: No Coronary Artery Disease: No Atherosclerotic Heart Disease: No Peripheral Vascular Disease: No Hypercholesterolemia: No Aneurysm: No Congestive Heart Failure: No Congenital Heart Disease: No Valvular Heart Disease: No Rheumatic Fever: No Edema: No Pericarditis: No Cellulitis: No Deep Vein Thrombosis: No Respiratory Problems Chronic Obstructive Pulmonary Disease (COPD): No Asthma: No Bronchitis: No Emphysema: No Pneumonia: No Pulmonary Fibrosis: No Tuberculosis: No Pulmonary Embolism: No Pulmonary Edema: No Sleep Apnea: No CPAP Dependent: No Respiratory Aspiration: No Dyspnea: No Orthopnea: No Hx Cough: No Cough: No Wheezing: No Chest Deformities: No Smoking: No Smoking Cessation Counseling: No Smoking Exposure: No Tobacco Use: No Clubbing: No Exposure to Respiratory Irritants: No Intubation: No Genital/Urinary Problems Chronic Kidney Disease: No Renal Disease: No Kidney Stones: No Polycystic Kidney Disease: No Neurogenic Bladder: No Inguinal Hernia: No Dialysis: No Reproductive Problems Breast Cancer: No Endometriosis: No Fibroids: No Genital Herpes: No Gonorrhea: No Pelvic Inflammatory Disease: No Polycystic Ovarian Syndrome: No Previous Pregnancies: No Syphilis: No Uterine Prolapse: No Head,Eye,Nose,Throat Problems Cataracts: No Glaucoma: No Blind: No Retinal Detachment: No Macular Degeneration: No Chronic Ear Infections: No Deafness: No Eye Prosthesis: No Blood Problems Anemia: No Leukemia: No Hemophilia: No Thalassemia: No Sickle Cell Disease: No Clotting Problems: No Subjective Visit Visit for: new patient and knee (BILATERAL) Immunization / Flu Flu Vaccine in the Last 12 Months: No Flu Vaccine Exclusion Criteria: Refused by Patient History of Present Illness Chief complaint: BILATERAL KNEE PAIN Date of injury / onset of symptoms: 10 YEARS Personal History Occupation: RETIRED Additional comments: HISTORY OF PRESENT ILLNESS IYogi, have obtained verbal consent from the patient, to be recorded during this encounter which may include, but not limited to, medical history, examination, treatment plans, and relevant health information.? Patient was informed that recording will be read and reviewed by myself before inclusion in the medical chart. The patient is a 75-year-old female presenting with bilateral knee pain, left worse than right, persisting for the past 10 years. She reports that her left knee is more problematic than the right. The pain intensifies during ambulation but subsides when seated. She experiences tingling predominantly on the right side, while the left knee is characterized by burning, aching, and popping sensations. Stiffness and nocturnal pain are also present. She has no history of hypertension, diabetes, or hypercholesterolemia. An MRI was conducted on 11/27/2024. She has received a total of 6 plasma inje ctions in each knee and a single steroid injection, which provided temporary relief. However, the steroid injections were discontinued due to the recommendation for knee replacement surgery. She manages her pain with ibuprofen, which offers occasional relief. She has been having palpitations and is being referred to a fundraising assistant Pain Pain level (0-10): 7 Pain duration: WITH MOVEMENT Pain location: inside (medial) (RIGHT) and outside (lateral) (LEFT) Pain quality: dull (LEFT), burning (LEFT) and tingling (RIGHT) Pain timing: night, increases with activity and stairs Associated signs & symptoms: stiffness Ambulatory data Ambulatory device: none Treatments Number of previous injections: 6 (PLASMA/1 STEROID INJECTION) Improvement with previous injections: Yes Improvement with PT: No Improvement with NSAIDS: yes (IBUPROFEN) Review of Systems Review of Systems: All systems negative unless otherwise noted in HPI.
[2025-04-15 09:03] VITALS: BP 153/76; PULSE 91; RESP 18; TEMP 36.4; O2SAT 95; BMI 30.8
== END 2025-04-15 09:05 | disposition home or self-care (01) ==
LOC: HODSRG 08:33
PROVIDERS: PCP Physician Assistant; Referring Provider Physician Assistant; Supervising Provider Orthopaedic Surgery Adult Reconstructive Orthopaedic Surgery; Visit Provider Orthopaedic Surgery Adult Reconstructive Orthopaedic Surgery
DX: M17.0 Bilateral primary osteoarthritis of knee (principal); R00.2 Palpitations
CPT/HCPCS: 99213; G0463

== ENCOUNTER → 2025-04-15 | Outpatient (CLI) | payer MEDICARE, MEDICAID, SELFPAY ==
--- NOTE | 2025-04-15 09:30 | XR_ITS ---
Examination: CT left lower extremity without intravenous contrast, without contrast. 2-D sagittal reconstructions. 2-D coronal reconstructions. 3-D reconstructions. Date and time of exam: April 15, 2025, 1040 hours INDICATIONS: Diagnosis primary left knee unilateral osteoarthritis, left knee pain several years CTDI: vol (mGy): 19.6 DLP: (mGycm): 975 Technique: Multiple 1.25 mm axial sections of the left lower extremity without intravenous contrast have been obtained. 2-D sagittal and coronal reconstructions have been obtained. 3-D reconstructions have been obtained. Low dose protocols were performed. One or more of the following dose reduction techniques were used; automated exposure control, adjustment of the mA and/or KV according to patient size, use of iterative reconstruction technique. Findings: Severe osteopenia Mild to moderate narrowing hip joints No hip fractures or dislocations Advanced left knee tricompartment osteoarthritis No fractures No dislocations IMPRESSION: Advanced left knee tricompartment osteoarthritis
== END | disposition home or self-care (01) ==
PROVIDERS: PCP Physician Assistant; Referring Provider Orthopaedic Surgery Adult Reconstructive Orthopaedic Surgery; Visit Provider Orthopaedic Surgery Adult Reconstructive Orthopaedic Surgery
DX: M17.12 Unilateral primary osteoarthritis, left knee (principal)
CPT/HCPCS: 73700